=== PATIENT | female | born 2000 | race Caucasian/White ===

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

== ENCOUNTER → 2020-04-08 22:33 | Observation (INO) ==
[2020-04-08 22:24] VITALS: BP 109/63
[~2020-04-08 22:33] MED LIST changes: -*HR* Nalbuphine 20 MG/ML AMPUL IVP PRN; +Betamethasone Acet/SodPhos 30 MG/5 ML VIAL IM SCH; -EPHEDrine 50 MG/ML VIAL IVP PRN; -Epidural Premix (fent/bupiv) 110 ML EP ONE; -Epidural Premix (fent/bupiv) 110 ML EP SCH; -Famotidine 20 MG/2 ML VIAL IVP PRN; -Naloxone 0.4 MG/ML INJ IVP PRN; -Ondansetron 4 MG/2 ML VIAL IVP PRN; -Oxytocin 20 units/ LR 1000 mL 20 UNIT/1,000 ML BAG IVC SCH; -Ringers Solution, Lactated 1,000 ML IVC SCH; -Ringers Solution, Lactated 500 ML IVC ONE
== END | disposition home or self-care (01) ==
LOC: 1NENULAB
PROVIDERS: ADMIT Advanced Practice Midwife; ATTEND Advanced Practice Midwife

== ENCOUNTER → 2020-04-18 17:09 | Observation (INO) | END | disposition home or self-care (01) | LOC: 1NENULAB | PROVIDERS: ADMIT Obstetrics & Gynecology; ATTEND Obstetrics & Gynecology ==

== ENCOUNTER 2020-05-03 22:10 | Inpatient (IN) ==
[2020-05-03] MEDS ORDERED: Metoclopramide 10 MG/2 ML VIAL IVP PRN (22:11)
[2020-05-03] MEDS ORDERED: Ondansetron 4 MG/2 ML VIAL IVP PRN (22:11)
[2020-05-03] MEDS ORDERED: *HR* FentaNYL (PF) 100 MCG/2 ML VIAL IVP PRN (22:11)
[2020-05-03] MEDS ORDERED: Azithromycin 500 MG in 0.9 % Sodium Chloride 250 ML IVPB ONE (22:11)
[2020-05-03] MEDS ORDERED: Famotidine 20 MG/2 ML VIAL IVP PRN (22:11)
[2020-05-03] MEDS ORDERED: Naloxone 0.4 MG/ML INJ IVP PRN (22:11)
[2020-05-03] MEDS ORDERED: Lidocaine 1% 20 ML MDV INFILT PRN (22:11)
[2020-05-03] MEDS ORDERED: Penicillin G Potassium 5,000,000 UNIT in 0.9 % Sodium Chloride Mini Bag 100 ML IVPB ONE (22:13)
[2020-05-03] MEDS ORDERED: Oxytocin 20 units/ LR 1000 mL 20 UNIT/1,000 ML BAG IVC SCH (22:15)
[2020-05-03] MEDS ORDERED: Ringers Solution, Lactated 1,000 ML ONE (22:31)
[2020-05-03 22:44] LABS: Basophils # 0.1 K/mcL (0.0-0.2); Basophils % 0.4 %; Eosinophils # 0.2 K/mcL (0.0-0.6); Eosinophils % 1.3 %; Hematocrit 32.2 % (35.3-44.9); Hemoglobin 10.3 g/dL (11.5-15.4); Immature Granulocytes % 0.5 % (0-4); Lymphocytes # 2.6 K/mcL (0.6-4.6); Lymphocytes % 21.6 %; Mean Corpuscular Hemoglobin 25.7 pg (28.0-33.3); Mean Corpuscular Volume 80.3 fL (83.0-100.0); Mean Platelet Volume 10.2 fL (9.4-12.4); Monocytes # 0.7 K/mcL (0.0-1.3); Monocytes % 5.5 %; Neutrophils # 8.5 K/mcL (1.6-8.9); Platelet Count 249 K/mcL (140-400); Red Blood Count 4.01 M/mcL (3.82-4.97); Red Cell Distribution Width 15.2 % (11.5-14.5); Segmented Neutrophils % 70.7 %
[2020-05-03] MEDS ORDERED: Ringers Solution, Lactated 1,000 ML IVC SCH (22:45)
[2020-05-03 22:56] LABS: Amphetamine Screen,Urine Negative ng/mL (Cutoff=1000); Barbiturate Screen,Urine Negative ng/mL (Cutoff=200); Benzodiazepines Screen,Urine Negative ng/mL (Cutoff=200); Cannabinoid Screen,Urine Positive ng/mL (Cutoff = 50); Cocaine Screen,Urine Negative ng/mL (Cutoff= 300); Opiate Screen,Urine Negative ng/mL (Cutoff=300); Phencyclidine Screen,Urine Negative ng/mL (Cutoff=25)
[2020-05-04] MEDS: Penicillin G Potassium 2,500,000 UNIT/105 ML MLS IVPB SCH ×2 (02:00→05:46)
[2020-05-04] MEDS ORDERED: EPHEDrine 50 MG/ML VIAL IVP PRN (04:02)
[2020-05-04] MEDS ORDERED: *HR* FentaNYL (PF) 100 MCG/2 ML VIAL EP ONE (04:02)
[2020-05-04] MEDS ORDERED: Ropivacaine/PF 0.2% 20 ML VIAL EP ONE (04:02)
[2020-05-04] MEDS ORDERED: Epidural Premix (fent/bupiv) 110 ML EP ONE (04:09)
[2020-05-04] MEDS ORDERED: Epidural Premix (fent/bupiv) 110 ML EP SCH (04:15)
[2020-05-04] MEDS ORDERED: Benzocaine/Menthol 56 GM AEROSOL SPRAY TP PRN (11:27)
[2020-05-04] MEDS ORDERED: Oxytocin 20 units/ LR 1000 mL 20 UNIT/1,000 ML BAG IVC SCH (11:27)
[2020-05-04] MEDS ORDERED: Lanolin 7 G OINT...G. TP PRN (11:27)
[2020-05-04] MEDS ORDERED: Rho Immune Globulin 1,500 UNIT SYRINGE IM PRN (11:27)
[2020-05-04] MEDS: Ibuprofen 600 MG TABLET PO SCH ×2 (12:41→17:58)
[2020-05-04] MEDS: Acetaminophen 325 MG TABLET PO SCH ×2 (12:41→17:58)
[2020-05-04] MEDS: Nicotine 21 MG PATCH.TD24 TD SCH (13:23)
[2020-05-04] MEDS ORDERED: Ondansetron ODT 4 MG TAB.RAPDIS SL ONE (19:47)
[2020-05-05] MEDS: Ibuprofen 600 MG TABLET PO SCH ×3 (00:15→08:40)
[2020-05-05] MEDS: Acetaminophen 325 MG TABLET PO SCH ×2 (00:16→06:45)
[2020-05-05 07:31] VITALS: BP 93/63
[2020-05-05] MEDS: Nicotine 21 MG PATCH.TD24 TD SCH (08:40)
[2020-05-05] MEDS ORDERED: Prenatal Vit/FA 1 EACH TABLET PO SCH (09:00)
== END 2020-05-05 11:42 | disposition home or self-care (01) | DRG 560 ==
LOC: 1NENULAB 22:10 → 1NENUOBS 05-04 11:27
PROVIDERS: ADMIT Obstetrics & Gynecology; ATTEND Obstetrics & Gynecology